=== PATIENT | female | born 1965 | race Caucasian/White ===

== ENCOUNTER 2018-10-29 12:05 | Emergency (ER) | payer MEDICAID, OTHER ==
[~2018-10-29] VITALS: Wt 56.6 kg
[2018-10-29] MEDS ORDERED: IBUPROFEN 800 MG TAB PO ONE (14:30)
[2018-10-29] MEDS ORDERED: AZITHROMYCIN 250 MG TAB PO ONE (14:30)
[2018-10-29] MEDS ORDERED: AZIT250T PO (14:37)
[2018-10-29] MEDS ORDERED: IBUP-1542 PO (14:37)
--- NOTE | 2018-10-29 14:55 | ERD ---
ER Documentation Chief Complaint Chief Complaint cough x2 weeks, no sob, NO FEVER HPI Patient is a 53-year-old female with no medical problems who presents with a cough and shortness of breath. She has had a cough for the past 2 weeks. She has shortness of breath and pain around her ribs. The daughter found her in pain this morning so brought her to the emergency department. She was taking cough syrup. She has had no fevers. She has had no recent antibiotics. Upon review of old medical records this is the patient's first visit to the emergency department. She does not currently have a primary doctor. ROS All systems reviewed and are negative except as per history of present illness. Medications Home Meds Active Scripts Azithromycin* (Zithromax*) 250 Mg Tablet, 250 MG PO DAILY for 4 Days, TAB Prov:JERICA HYDE MD 10/29/18 Ibuprofen* (Motrin*) 600 Mg Tab, 600 MG PO Q6H PRN for PAIN AND OR ELEVATED TEMP, #30 TAB Prov:JERICA HYDE MD 10/29/18 PMhx/Soc Medical and Surgical Hx: pt denies Medical Hx History of Surgery: Yes () Anesthesia Reaction: No Hx Neurological Disorder: No Hx Respiratory Disorders: No Hx Cardiac Disorders: No Hx Psychiatric Problems: No Hx Miscellaneous Medical Probl: No Hx Alcohol Use: Yes Hx Substance Use: No Hx Tobacco Use: No Smoking Status: Never smoker FmHx Family History: No diabetes Physical Exam Vitals Vital Signs Date Temp Pulse Resp B/P (MAP) Pulse Ox O2 O2 Flow FiO2 Time Delivery Rate 10/29/18 98.0 79 16 142/85 96 12:19 (104) Physical Exam Const: Mild distress Head: Atraumatic Eyes: Normal Conjunctiva ENT: Normal External Ears, Nose and Mouth. Neck: Full range of motion. No meningismus. Resp: Clear to auscultation bilaterally, lower rib pain bilaterally with palpation Cardio: Regular rate and rhythm, no murmurs Abd: Soft, non tender, non distended. Normal bowel sounds Skin: No petechiae or rashes Back: No midline or flank tenderness Ext: No cyanosis, or edema Neur: Awake and alert Psych: Normal Mood and Affect Results 24 hrs Current Medications Medications Dose Sig/Camron Start Time Status Last (Trade) Ordered Route PRN Stop Time Admin Dose Reason Admin 500 mg ONCE ONCE 10/29/18 DC 10/29/18 Azithromycin PO 14:30 10/29/18 14:31 (Zithromax) 14:31 Ibuprofen 800 mg ONCE ONCE 10/29/18 DC 10/29/18 (Motrin) PO 14:30 10/29/18 14:32 14:31 Procedures/MDM Chest X-ray 1V Interpreted by me: Soft Tissue: No acute abnormalities Bones: No acute abnormalities Mediastinum/Cardiac Silhouette/Lungs: No acute abnormalities EKG read by me: Rate/Rhythm: Regular rate and rhythm at a rate of 67 Intervals: Normal Impression: No evidence of ischemia or arrhythmia Patient is a 53-year-old female with no medical problems who presents with cough and shortness of breath. Chest x-ray shows no signs of pneumonia or pneumothorax. EKG shows no signs of ischemia or arrhythmia. At this point I doubt acute coronary syndrome, pneumonia, pneumothorax, pulmonary embolism, or aortic dissection. Given the length of symptoms for 2 weeks with cough I will give a prescription for Zithromax and the first dose was given in the emergency department. The patient can use ibuprofen for pain as well. The patient can return for any worsening symptoms. Departure Diagnosis: Primary Impression: Rib pain Additional Impression: Cough Condition: Fair Patient Instructions: Bronchitis, Antiobiotic Treatment (Adult), Rib Contusion Ref[facility]: [facility] se dunn hecho un examen mdico de control que le indica que no est en april condicin que requiera tratamiento urgente en el Departamento de Emergencia. Un estudio ms profundo y el tratamiento de murphy condicin pueden esperar sin ningn riesgo hasta que usted sea atendida/o en el consultorio de murphy mdico o april clnica. Es responsabilidad suya arreglar april kirsty para el seguimiento del deonna. MANEJO DE CONDICIONES NO URGENTES EN EL FUTURO 1) Si usted tiene un mdico de atencin primaria: Usted debera llamar a murphy mdico de atencin primaria antes de venir al departamento de emergencia. Despus de las horas de consultorio, murphy doctor o murphy asociado/a est disponible por telfono. El mdico o enfermero de sanaz en el servicio telefnico puede asesorarle por jason medio para atender el problema, o deonna contrario se puede programar april kirsty. 2) Si usted no tiene un mdico de atencin primaria: Llame al mdico o clnica de referencia que aparece abajo finesse las horas de consultorio para hacer april kirsty para que le vean. CLINICAS: [facility] [phone] [id number] [facility] [phone] [facility] [phone] [address] [facility]. [place] [address] [phone] [facility]. [place] [address] [phone] [facility] [phone] [address] Additional Instructions: Llame al doctor MAANA y ramón april KIRSTY PARA DENTRO DE 1-2 WELLS.Dgale a la secretaria que nosotros le instruimos hacer esta kirsty.Avise o llame si murphy condicin se empeora antes de la kirsty. Regresa aqui si peor o no mejor. JERICA HYDE MD Oct 29, 2018 14:55
[2018-10-29 15:10] VITALS: BP 129/72; PULSE 75; RESP 18
== END 2018-10-29 15:11 | disposition home or self-care (01) ==
LOC: E/R 12:05
DX: R07.81 Pleurodynia (principal)
CPT/HCPCS: 71045; 93005; Z7502; Z7610